=== PATIENT | female | born 1940 | race Caucasian/White ===

== ENCOUNTER → 2018-07-19 | Outpatient (CLI) | payer OTHER ==
--- NOTE | 2018-07-19 17:09 | EXE ---
[place] [address] STRESS ECHOCARDIOGRAM Name: TOVA CURTIS Room: [facility]#: [id number] Admission: 07/19/18 Attend Phys: Noah Luis, Discharge: Date of : 44 Date of Service: 07/19/18 1709 Report #: [id number] THIS REPORT FOR: //name// APPROVED REPORT Study performed: 07/19/2018 15:34:29 Exam: Dobutamine Stress Echo Indication: Chest pain , Dyspnea , Fatigue Patient Location: Out-Patient Stress Nurse: Paige Grande RN Supervising Physician: Hernan Bullard MD Ht: 5 ft 2 in HR: 75 bpm BP: 172/85 mmHg Medical History Cardiac Risk Factors: FHX of CAD, HTN, DM Procedure The patient underwent a Pharmacological Stress Test using Dobutamine. Blood pressure, heart rate, and EKG were monitored. An Echocardiogram was performed by electronics maintenance technician in four stages in quad fashion. At peak stress, four selected images were obtained and placed side by side with resting images for comparison. Stress Test Details Stress Test: Pharmacological Stress Test using Dobutamine. Reason for pharmacologic stress test: physical limitation. HR Resting HR: 75 bpm Max Heart Rate (APMHR): 145 bpm Max HR Achieved: 138 bpm Target HR (85% APMHR): 123 bpm % of APMHR: 95 Recovery HR: 89 bpm HR response to stress: Normal HR response to stress BP Resting BP: 172/85 mmHg Max BP: 214/85 mmHg Recovery BP: 194/93 mmHg BP response to stress: Normal blood pressure response to stress. ECG Resting ECG: [place] [address] STRESS ECHOCARDIOGRAM Name: TOVA CURTIS Room: [facility]#: [id number] Admission: 07/19/18 Attend Phys: Noah Smith, Discharge: Date of : 44 Date of Service: 07/19/18 1709 Report #: [id number] Stress ECG: nsr ST Change: nonspecific ST depression Maximum ST Deviation: 0.5 mm Arrhythmia: none Recovery ECG: nsr Recovery ST Change: none Recovery ST Deviation: none mm Recovery Arrhythmia: none Clinical Reason for Termination: Completed protocol Stress Symptoms: Dyspnea Stress ECG Conclusion normal ecg Pre-Stress Echo The resting Echocardiogram showed normal left ventricular contractility with an estimated Ejection Fraction of about 60-65%. Moderate Aortic Stenosis, mean gradient 25mmhg, post infusion incrased to 37.5mmhg Mild Mitral Regurg Post-Stress Echo LV chamber size decreases, LV ejection fraction increases, no new wall motion abnormalities are seen. Conclusion Clinical Response: Non-ischemic Exercise Capacity: n/a Stress ECG Response: Non-ischemic Stress Echo Images: Non-ischemic Moderate aortic stenosis, no evidence of myocardial ischemia Other Information Study Quality: Good <Conclusion> Moderate aortic stenosis, no evidence of myocardial ischemia <ELECTRONICALLY SIGNED> By: Salinas Martinez MD, FAC 07/19/181708 08 08 Salinas Martinez MD, FACC /INF
== END ==
LOC: M.CRD 13:35
DX: I35.0 Nonrheumatic aortic (valve) stenosis (principal); R07.9 Chest pain, unspecified; R01.1 Cardiac murmur, unspecified; I10 Essential (primary) hypertension; E11.8 Type 2 diabetes mellitus with unspecified complications; Z82.49 Family history of ischemic heart disease and other diseases of the circulatory system

== ENCOUNTER 2018-07-23 10:06 | Observation (INO) | payer OTHER ==
[~2018-07-23] VITALS: Ht 157.5 cm; Wt 84.4 kg
[2018-07-23] VITALS (15 sets, daily range): BP systolic 117–170; BP diastolic 48–69
[2018-07-23 11:08] LABS: HEMATOCRIT 41.6 % (37.0-47.0); MCH 30.2 pg (26.0-34.0); MCHC 33.6 g/dL (28.0-37.0); MCV 89.6 fL (80.0-100.0); MPV 7.8 fl. (7.2-11.1); RBC 4.64 mil/uL (4.20-5.00); RDW-CV 13.6 % (10.5-14.5); WBC 4.9 thou/uL (4.0-11.0)
[2018-07-23 11:17] LABS: APTT 24.5 Seconds (25.0-31.3); INR 0.9; PROTIME 9.5 Seconds (9.20-11.50)
[2018-07-23 11:22] LABS: ALBUMIN 3.8 g/dL (3.4-5.0); ALKALINE PHOSPHATASE 78 U/L (46-116); ANION GAP 8 mmol/L (7-16); BUN 22 mg/dL (7-18); CALCIUM 9.1 mg/dL (8.5-10.1); CHLORIDE 104 mmol/L (98-107); CO2 30 mmol/L (21-32); CREATININE 0.8 mg/dL (0.6-1.3); GLUCOSE 132 mg/dL (70-99); POTASSIUM 3.9 mmol/L (3.5-5.1); SGOT 13 U/L (15-37); SGPT 26 U/L (30-65); SODIUM 142 mmol/L (136-145); TOTAL BILIRUBIN 0.3 mg/dL (<0.1-1.0); TOTAL PROTEIN 7.9 g/dL (6.4-8.2)
--- NOTE | 2018-07-23 14:59 | EKG ---
[place] [address] ELECTROCARDIOGRAM REPORT Name: TOVA CURTIS Room: [facility]#: [id number] Admission: 07/23/18 Attend Phys: Hernan Bullard MD, F Discharge: Date of : 44 Report #: [id number] THIS REPORT FOR: //name// [facility] Test Date: 2018-07-23 Test Time: 11:06:27 Pat Name: TOVA CURTIS Department: Room: Gender: F Documentation Liaison: : 1940 Requested By: Hernan Bullard Order Number: [id number] Martin MD: Hernan Bullard Measurements Intervals [place] Rate: 78 P: 49 WA: 152 QRS: 38 QRSD: 76 T: 60 QT: 356 QTc: 406 Interpretive Statements Sinus rhythm No previous ECG available for comparison Electronically Signed On 07-23-2018 14:59:19 CDT by Hernan Bullard [email or web address] <ELECTRONICALLY SIGNED> By: Hernan Bullard MD, [facility] 07/23/18 1459 1106 1106 Hernan Bullard MD, FACC /EPI
[2018-07-23 16:06] LABS: PCO2 VENOUS 43.8 mmHg (41.0-51.0); PO2 VENOUS 69.9 mmHg (35.0-45.0)
[2018-07-23 16:07] LABS: BE 0 mmol/L (-2 to +3); PCO2 VENOUS 46.5 mmHg (41.0-51.0); PO2 VENOUS 35.4 mmHg (35.0-45.0)
[2018-07-23 16:50] LABS: CHOLESTEROL 272 mg/dL (<200); HDL CHOLESTEROL 51 mg/dL (>40); LDL CHOLESTEROL 190 mg/dL (<100); TC:HDL 5.3 Ratio (Not establshd); TRIGLYCERIDE 156 mg/dL (<150); VLDL 31 mg/dL (<40)
[2018-07-23 16:51] LABS: SERUM ASSESSMENT CL
--- NOTE | 2018-07-23 16:57 | EKG ---
[place] [address] ELECTROCARDIOGRAM REPORT Name: TOVA CURTIS Room: [facility]#: [id number] Admission: 07/23/18 Attend Phys: Hernan Bullard MD, F Discharge: Date of : 44 Report #: [id number] THIS REPORT FOR: //name// [facility] Test Date: 2018-07-23 Test Time: 16:47:27 Pat Name: TOVA CURTIS Department: Room: Gender: Multimedia Services Coordinator: : 1940 Requested By: Hernan Bullard Order Number: [id number] Martin MD: Hernan Bullard Measurements Intervals [place] Rate: 76 P: 33 NV: 157 QRS: 38 QRSD: 81 T: 48 QT: 396 QTc: 446 Interpretive Statements Sinus rhythm Compared to ECG 07/23/2018 11:06:27 No significant changes Electronically Signed On 07-23-2018 16:57:21 CDT by Hernan Bullard [email or web address] <ELECTRONICALLY SIGNED> By: Hernan Bullard MD, [facility] 07/23/18 1657 46 46 Hernan Bullard MD, FACC /EPI
--- NOTE | 2018-07-23 17:27 | CARD ---
[address] [address] CARDIAC CATH REPORT Name: TOVA CURTIS Room: [facility] GIANCARLO Nassar#: [id number] Admission: 07/23/18 Attend Phys: Hernan Bullard MD, F Discharge: Date of : 44 Report #: [id number] THIS REPORT FOR: //name// APPROVED REPORT Study performed: 07/23/2018 14:48:11 Patient Details Patient Status: Out-Patient Room #: The patient is a 77 year-old female Event Personnel Hernan Bullard Electric Motor Repairing Supervisor, Paula Bettencourt RN Chainstitch Binder, Noé Reyna (R) Monitor, Willis Long WATERSHED PROGRAM MANAGER Scrub Procedures Performed Right and Left Heart Cath w/or w/o CoronarieDES Place w/wo Plasty Single LAD PEDRO Place w/wo Plasty Addl BR OM 2 Indication Chest pain, Murmur Risk Factors Hypercholesterolemia, Hypertension, Diabetes Admission/Lab Medications/Medications given during procedure Glycoprotein IllbIlla Inhibitors, Heparin Unfract. Procedure Narrative The patient was brought electively to the Cardiac Catheterization Laboratory and was prepped and draped in a sterile manner. The right femoral was infiltrated with 1% Lidocaine subcutaneous anesthesia. A Right Heart Catheterization was performed with a 6 Fr. [place]-Caryn catheter and pressure were recorded. Cardiac outputs were obtained by the Thermal Dilution method. A 7Fr X 11cm Sheath sheath was inserted into the right femoral artery. Coronary angiography was performed using coronary diagnostic catheters. The right coronary system was accessed and visualized with a Diagnostic JR 4 catheter. The left coronary system was accessed and visualized with a Diagnostic JL 4 catheter. The left ventricle was accessed and visualized with a Diagnostic Angled Pigtail catheter. Left ventricular/Aortic Valve gradient assessed via catheter pullback. Left ventriculogram was performed in AGUILA and BOTSWANAN projection. [place] [address] CARDIAC CATH REPORT Name: TOVA CURTIS [id number] Admission: 07/23/18 Attend Phys: Hernan Bullard MD, F Discharge: Date of : 44 Report #: [id number] a 5 Fr Angioseal STS 6Fr. The patient tolerated the procedure well and there were no complications associated with the procedure. There was no hematoma. Right heart pressures and O2 saturations were performed with a swan caryn catheter. 7 tunisian sheath removed from the right femoral vein and a mynx was placed Intraoperative Conscious Sedation Sedation start time: 15:11 Case end Time: 16:07 Fentanyl 50 mcg Versed 2 mg Fluoro Time: 7.8 minutes Dose: DAP 98001 cGycm2 1530 mGy Contrast Type and Amount: Visipaque 250 ml Coronary Angiography The patient's coronary anatomy is co- dominant. Diagnostic Cath Left Main 0% stenosis LAD 90% proximal, 50% mid, and 60% distal stenosis noted OM2 80% mid stenosis Right Coronary 70% proximal and 80% distal stenosis Left Ventriculography The left ventricle is normal in size with normal contractility. The left ventricular ejection fraction is estimated to be 60-65%. Left ventricular wall motion abnormalities are not present. There is no mitral insufficiency. Hemodynamics The right atrial mean pressure is 6 mmHg. The right ventricular pressure is 42/4 mmHg. The pulmonary artery pressure is 38/13 mmHg with a mean of 19 mmHg. The mean pulmonary capillary wedge pressure is 10 mmHg. The aortic pressure is 154/61 mmHg with a mean of 98 mmHg. The left ventricular pressure is 176/8 mmHg with a mean of mmHg. The left ventricular end diastolic pressure is 15 mmHg. Pullback from the left ventricle to the aorta revealed a 20 mm gradient across the aortic valve. Arterial saturation is 93 %. The cardiac output and index were assessed using thermodilution. The cardiac output using thermo method is 4.37 L/min. The cardiac index using thermo method is 2.39 L/min/m2. The peak gradient across the aortic valve is 20 mmHg. PCI Technique Lesion Anticoagulation was achieved with Heparin[place] [address] CARDIAC CATH REPORT Name: TOVA CURTIS JOSEPH Room: [facility]#: [id number] Admission: 07/23/18 Attend Phys: Hernan Bullard MD, F Discharge: Date of : 44 Report #: [id number] Percutaneous coronary intervention was performed on the second obtuse marginal branch segment. The lesion stenosis prior to intervention was 80% with SHANNEN 3 flow. A 6FR XB 3.5 100CM Guide Catheter was used to engage the lm ostium. A IG: BMW 190cm Interventional Guidewire was used to cross the lesion. BALLOON DILATION A Balloon catheter Trek RX 2.5 X 8 was inserted and inflated up to 8.00atm for 13seconds. Repeat angiography revealed the following post-dilatation results: 50% stenosis. STENT DEPLOYMENT A drug-eluting stent [place] RX Stent 2.5X12mm was inserted and inflated up to 10.00atm for 13seconds. Repeat angiography revealed the following post-stent deployment results: 0% stenosis. Additional Inflation: 10.00atm for 15seconds. Final angiography reveals 0 % stenosis with SHANNEN 3 flow. PCI Technique Lesion 2 Percutaneous Coronary Intervention was performed on the proximal left anterior descending artery segment. Percutaneous coronary intervention was performed on the proximal left anterior descending artery segment. The lesion stenosis prior to intervention was 90% with SHANNEN 3 flow. A 6FR XB 3.5 100CM Guide Catheter was used to engage the lm ostium. A IG: BMW 190cm Interventional Guidewire was used to cross the lesion. Balloon Dilation A Balloon catheter Trek RX 2.5 X 8 was inserted and inflated up to 10.00atm for 13seconds. Repeat angiography revealed the following post-dilatation results: 40% stenosis. Stent Deployment A drug-eluting stent [place]field RX Stent 2.5X18mm was inserted and inflated up to 10.00atm for 12seconds. Repeat angiography revealed the following post-stent deployment results: 0% stenosis. Additional Inflation: 13.00atm for 14seconds. Final angiography reveals 0 % stenosis with SHANNEN 3 flow. Conclusion 1. cad manifested by 90% proximal stenosis of the lad, and 60% distal stenosis 2. 80% stenosis of second marginal branch of the circumflex [address] [address] CARDIAC CATH REPORT Name: TOVA CURTIS [id number] Admission: 07/23/18 Attend Phys: Hernan Bullard MD, F Discharge: Date of : 44 Report #: [id number] 3. 70% proximal stenosis of the rca 4. LVEF 60-65% 5. successful placement of drug eluting stents in the lad and circumflex 6. mild Recommendations Cardiac Rehabilitation Referral Aggressive Medical Therapy Medications Administered Clopidogrel <ELECTRONICALLY SIGNED> By: Hernan Bullard MD, FAC 07/23/18 1727 172 26Hernan Bullard MD, FACC /INF
[2018-07-23] MEDS ORDERED: METFORMIN HCL500 MG PO (17:55)
[2018-07-23] MEDS ORDERED: SPIRONOLACTONE25 M1 PO (17:57)
[2018-07-23] MEDS ORDERED: HUMALOG100 UNIT/1 SUBQ (17:58)
[2018-07-23] MEDS ORDERED: PROTONIX40 M1 PO (17:58)
[2018-07-23] MEDS ORDERED: INDAPAMIDE2.5 MG PO (17:59)
[2018-07-23] MEDS ORDERED: SYNTHROID88 MCG PO (18:00)
[2018-07-23] MEDS ORDERED: VITAMIN D1000 UNI1 PO (18:01)
[2018-07-23] MEDS ORDERED: FOLIC ACID0.4 MG PO (18:01)
[2018-07-23] MEDS ORDERED: CENTRUM SILVER1 EAC4 PO (18:02)
--- NOTE | 2018-07-23 18:07 | NUR ---
PT ADMITTED TO ROOM 203 VIA CART FROM LOCOMOTIVE FIRER/FIREMAN. REPORT RECEIVED FROM MARY RIOS. PT IS POST CATH-RIGHT GROIN- DRESSING IN PLACE-NOTED TO HAVE DRIED BLOOD. WILL MONITOR CLOSELY. ADMISSION ASSESSMENT AND HISTORY COMPLETED. SEPSIS SCREENING COMPLETED- PT SCREENED NEGATIVE. REFER TO CHARTING. PT ORIENTED TO ROOM AND CALL LIGHT. FAMILY AT BEDSIDE. PT INSTRUCTED ON BEDREST UNTIL 2220. PT COMMUNICATES UNDERSTANDING. PT A&0X4, DENIES ANY PAIN OR SHORTNESS OF BREATH AT THIS TIME. PT TRACING SR ON THE BUSINESS ANALYST SALES OPERATIONS. ON RA SAT UPPER 90'S. HOME MEDICATIONS RECONCILED. POST CARDIAC CATH ASSESSMENT AND VITALS CHARTED. MEDICATIONS PER MAY. PT REPOSITIONS SELF. HOURLY ROUNDING OBSERVED. BED IN LOW POSITION. CALL LIGHT WITHIN REACH, WILL CONTINUE PLAN OF CARE.
[2018-07-24] VITALS: BP 152/68
[2018-07-24 04:00] VITALS: BP 142/62
--- NOTE | 2018-07-24 05:23 | NUR ---
PT RESTING COMFORTABLE IN BED. PT SR ON MONITOR. NO C/O PAIN. UPON SHIFT CHANGE BEGINNING OF MY SHIFT. DAY RN SHOWED ME PT RIGHT GROIN POST CATH AND SAID THE PT WAS BROUGHT UP WITH THE SITE OOZING BUT RN OUTLINED. I VERIFIED FOR ACCURACY BY PLACING TISSUE IN RIGHT GROIN AND IT SITE WAS OOZING SO I HELD PRESSURE FOR ABOUT 8 MIN. REDRESSED WITH NEW GAUZE AND TRANSPARENT DSG. CALL WAS PLACED TO DR. CORDOVA WHO WAS ON SITE CONSTRUCTION SUPERINTENDENT FOR DR HENLEY AND NOTIFIED HIM OF PT STATUS. HE SAID OKAY AND TO MONITOR. AROUND MIDNIGHT, RECHECKED SITE AND SMALL AMOUNT OF DRAINAGE ON NEW DSG, OUTLINED THAT AND MONITORED WITH NO CHANGE SO FAR.
[2018-07-24 05:25] LABS: HEMATOCRIT 36.1 % (37.0-47.0); HEMOGLOBIN 12.3 gm/dL (12.0-15.0); MCH 30.3 pg (26.0-34.0); MCV 88.9 fL (80.0-100.0); MPV 7.9 fl. (7.2-11.1); RBC 4.06 mil/uL (4.20-5.00); RDW-CV 13.9 % (10.5-14.5); WBC 5.6 thou/uL (4.0-11.0)
[2018-07-24 05:26] LABS: CALCIUM 8.7 mg/dL (8.5-10.1); CREATININE 0.7 mg/dL (0.6-1.3); POTASSIUM 3.9 mmol/L (3.5-5.1)
[2018-07-24 06:20] LABS: TROPONIN-I LEVEL 1.56 ng/mL (<0.06)
[2018-07-24 08:59] VITALS: BP 142/62
[2018-07-24 09:00] VITALS: BP 184/62
--- NOTE | 2018-07-24 10:29 | NUR ---
ASSUMED PT CARE AT 0700 PT IS ALERT AND ORIENTED X 4 PT DENIES PAIN OR SOA ON RA, PT IS UP AD CHRIS PT IS NOT A FALL RISK, PT RIGHT GROIN SITE IS CLEAN DRY INTACT SOFT SLIGHT BRUSING, PT IS SR ON THE MONITOR, WILL CONTINUE TO MONITOR
[2018-07-24 12:12] VITALS: BP 173/58
[2018-07-24] MEDS ORDERED: PLAVIX 75 MG TA75 MG PO (12:15)
[2018-07-24] MEDS ORDERED: NITROGLYCERIN0.4 MG SUBLING (12:24)
[2018-07-24] MEDS ORDERED: TYLENOL325 MG PO (12:24)
[2018-07-24] MEDS ORDERED: ZETIA10 MG PO (12:25)
[2018-07-24 12:26] VITALS: BP 142/62
--- NOTE | 2018-07-24 13:11 | SHORT ---
[address] [address] SHORT STAY SUMMARY Name: TOVA CURTIS Room: [address] Prabhu Nassar#: [id number] Admission: 07/23/18 Attend Phys: Hernan Bullard MD, F Discharge: Date of : 44 Report #: [id number] THIS REPORT FOR: //name// CC: Hernan Smith DATE OF SERVICE: 07/24/2018 DISCHARGE DIAGNOSES: 1. Crescendo angina. 2. Coronary artery disease. 3. Hypertension. 4. Mild aortic stenosis. 5. Diabetes. 6. Hyperlipidemia. 7. Carotid bruit. PROCEDURES: Right and left heart catheterization with placement of drug-eluting stents in the LAD and circumflex artery via the femoral approach. HISTORY OF PRESENT ILLNESS: The patient is a 77-year-old single white female who was brought to the outpatient department to perform cardiac catheterization. The patient has a history of a heart murmur. Recently, she noticed with exertion, she develops tightness in her chest and has to stop walking. The pain is not related to food. She does note exertional dyspnea, but has had no syncope. She recently underwent a stress dobutamine echo at [place] that did reproduce the chest discomfort. There were no ECG changes and moderate aortic stenosis was noted. Because of her symptoms of crescendo angina and strong family history, I recommended she undergo cardiac catheterization. PAST MEDICAL HISTORY: Significant for no major surgical procedures. She has a history of hypertension, diabetes, and hyperlipidemia. MEDICATIONS: Consists of gemfibrozil. She cannot tolerate statin drugs in the past. She is on Lozol, insulin, Synthroid, Glucophage, Protonix, red yeast rice tablets, and spironolactone. ALLERGIES: SHE IS INTOLERANCE TO JAYA INHIBITORS, CODEINE, LOSARTAN, STATIN DRUGS. PHYSICAL EXAMINATION: VITAL SIGNS: Blood pressure 140/80, pulse 80. CHEST: Clear to auscultation, bilateral carotid bruits were heard. CARDIAC: Regular rate and grade 4 lay PSI ejection murmur along [place] [address] SHORT STAY SUMMARY Name: TOVA CURTIS Room: [address]#: [id number] Admission: 07/23/18 Attend Phys: Hernan Bullard MD, F Discharge: Date of : 44 Report #: [id number] ABDOMEN: Soft. EXTREMITIES: Had no edema. SKIN: Warm and dry. LABORATORY DATA: ECG showed a sinus rhythm. LABORATORY DATA: Her workup: Sodium 142, creatinine 0.7, glucose 160. Liver function studies were normal. Cholesterol is 272, triglyceride 156, HDL 51, and LDL 190. TSH is 1.9. White blood cell count 5.6 and hemoglobin 12.3. HOSPITAL COURSE: The patient was brought to the outpatient department. I performed a right and left heart catheterization from the right femoral artery and vein. Results showed normal left ventricular function with an ejection fraction of 60-65%. There was a 20 mm gradient noted across the aortic valve with aortic valve area of 1.0 consistent with moderate aortic stenosis. She was found to have diffuse coronary artery disease of 90% narrowing of the proximal LAD, 60% narrowing of the distal LAD. There was an 80% stenosis of the second marginal branch of circumflex. The right coronary artery had a 70% mid stenosis and 80% narrowing of the distal right coronary artery. The results were discussed with the patient. She is felt to have only moderate aortic stenosis. However, she had severe coronary artery disease. I recommended stenting. I did not recommend stenting of the right coronary artery since it was a small vessel and tortuous. I did place a drug-eluting stent in the proximal LAD and the second marginal branch. She tolerated this well. She was given heparin and Aggrastat. She was loaded with Plavix. The sheath was removed from the right femoral artery and an Angio-Seal placed. The sheath was removed from the right femoral vein after the right heart catheterization and Mynx closure device was placed. The patient had no significant hematoma the next day. She denied any further chest pain, shortness of breath or arrhythmias. She was discharged on her home medications that consisted of Lopid 600 mg twice day for hypertriglyceridemia. The patient cannot tolerate statin drugs. I suggested continue her red yeast rice and to take Zetia 10 mg a day. She was to continue Lozol for hypertension. She is on insulin therapy for diabetes, Synthroid 88 mcg a day. She is not to resume her metformin for 48 hours after the contrast study. She is on Protonix 40 mg a day, Aldactone 25 mg a day. In addition, she was started on aspirin 81 mg a day and Plavix 75 mg a day for at least one year following stenting. She is given a prescription for nitroglycerin. The patient has had previous vascular screening showing no significant carotid stenosis. I would recommend a repeat carotid Doppler, since she has bilateral carotid bruits. The patient was discharged to return to nurse Smith for management of her diabetes. I plan on seeing her in Cardiology Clinic in 1 month for followup of coronary artery stenting. She was to contact my office if she had recurrent chest pain or bleeding. If she continues to have angina, I would consider [address] [address] SHORT STAY SUMMARY Name: TOVA CURTIS JOSEPH Room: [address] Maday#: [id number] Admission: 07/23/18 Attend Phys: Hernan Bullard MD, F Discharge: Date of : 44 Report #: [id number] stenting of the right coronary artery. At the time of discharge, the patient had a blood pressure of 140/60, pulse is 80, and she is afebrile. <ELECTRONICALLY SIGNED> By: Hernan Bullard MD, FACC 07/24/18 1311 1113 1152Dtimothy Bullard MD, FACC /nt
--- NOTE | 2018-07-24 13:45 | EKG ---
[place] [address] ELECTROCARDIOGRAM REPORT Name: TOVA CURTIS Room: [address] M.R.#: [id number] Admission: 07/23/18 Attend Phys: Hernan Bullard MD, F Discharge: 07/24/18 Date of : 44 Report #: [id number] THIS REPORT FOR: //name// [facility] Test Date: 2018-07-24 Test Time: 08:00:56 Pat Name: TOVA CURTIS Department: Room: [facility] Gender: F Geospatial Applications Developer: : 1940 Requested By: Hernan Bullard Order Number: [id number] Martin MD: Hernan Bullard Measurements Intervals [place] Rate: 81 P: 47 CT: 161 QRS: 49 QRSD: 77 T: 54 QT: 380 QTc: 441 Interpretive Statements Sinus rhythm Compared to ECG 07/23/2018 16:47:27 No significant changes Electronically Signed On 07-24-2018 13:45:33 CDT by Hernan Bullard [email or web address] <ELECTRONICALLY SIGNED> By: Hernan Bullard MD, [facility] 07/24/18 1345 0800 08 Hernan Bullard MD, [facility] /EPI
== END 2018-07-24 12:30 | disposition home or self-care (01) ==
LOC: M.CL 10:06 → M.2W 16:30 → M.TBA-CV 16:30 → M.2W 17:51
PROVIDERS: ADMIT Internal Medicine Cardiovascular Disease
DX: I25.119 Atherosclerotic heart disease of native coronary artery with unspecified angina pectoris (principal); E11.9 Type 2 diabetes mellitus without complications; E78.00 Pure hypercholesterolemia, unspecified; I10 Essential (primary) hypertension; I35.0 Nonrheumatic aortic (valve) stenosis; E78.5 Hyperlipidemia, unspecified; R09.89 Other specified symptoms and signs involving the circulatory and respiratory systems; Z95.5 Presence of coronary angioplasty implant and graft; Z88.5 Allergy status to narcotic agent; Z88.8 Allergy status to other drugs, medicaments and biological substances

== ENCOUNTER → 2019-09-15 | Outpatient (CLI) | payer OTHER ==
[~2019-09-15] MED LIST: CENTRUM SILVER1 EAC4 PO; FOLIC ACID0.4 MG PO; HUMALOG100 UNIT/1 SUBQ; INDAPAMIDE2.5 MG PO; METFORMIN HCL500 MG PO; NITROGLYCERIN0.4 MG SUBLING; PLAVIX 75 MG TA75 MG PO; PROTONIX40 M1 PO; SPIRONOLACTONE25 M1 PO; SYNTHROID88 MCG PO; TYLENOL325 MG PO; VITAMIN D1000 UNI1 PO; ZETIA10 MG PO
--- NOTE | 2019-09-15 18:08 | CARDNUC ---
[place] [address] CARDIAC NUCLEAR IMAGING REPORT Name: KIRSTEN,MELMILES Mendes Room: [facility]#: [id number] Admission: 09/15/19 Attend Phys: Hernan Bullard MD Discharge: Date of : 44 Date of Service: 09/15/19 1807 Report #: [id number] THIS REPORT FOR: cc: La Sánchez Tammy RNP Liston, Michael J. MD [facility] ~ APPROVED REPORT Study performed: 09/15/2019 09:19:06 Exam: Nuclear Stress Test Indication: Chest pain Patient Location: Out-Patient Stress Tech: Taylor Trevino Stress Nurse: Lexi Caldwell RN Ht: 5 ft 2 in Wt: 187 lbs BSA: 1.86 m2 BMI: 34.19 Medical History Medical History: CAD s/p stent, Carotid artery disease, Diabetes, HTN, Hyperlipidemia, Valvular heart disease Medications: asa-81, metoprolol, indapamide, ntg, spironolactone, clonidine Allergies: gabapentin, losartan, pneumovax, michael inhibitors, codeine, sertraline, simvastatin Cardiac Risk Factors: Age, HTN, Hyperlipidemia, DM Previous Cardiac Procedures: PCI Exercise History: Indeterminate Stress Test Details Stress Test: Pharmacologic stress testing performed using 0.4 mg of regadenoson per 5 mL given IV over 10 seconds. HR Resting HR: 93 bpm Max Heart Rate (APMHR): 143 bpm Max HR Achieved: 135 bpm Target HR (85% APMHR): 121 bpm % of APMHR: 94 Recovery HR: 103 bpm BP Resting BP: 153/83 mmHg Max BP: 217/98 [place] [address] CARDIAC NUCLEAR IMAGING REPORT Name: TOVA CURTIS Vaughn Room: [facility]#: [id number] Admission: 09/15/19 Attend Phys: Hernan Bullard MD Discharge: Date of : 44 Date of Service: 09/15/19 1807 Report #: [id number] ECG Resting ECG: Sinus Rhythm Stress ECG: Sinus Rhythm ST Change: Downsloping ST depression Maximum ST Deviation: 1 mm Arrhythmia: None Recovery ECG: Sinus Rhythm Recovery ST Change: Downsloping ST depression Recovery ST Deviation: 1 mm Recovery Arrhythmia: None Clinical Reason for Termination: Completed protocol The patient had no significant cardiac symptoms with the walking Lexiscan protocol. Nurse Comments pt too unsteady on feet to walk on treadmill Stress ECG Conclusion The baseline twelve-lead EKG shows sinus rhythm with no significant ST segment or T wave abnormality. EKGs obtained during a post walking Lexiscan protocol show [address] segment depression in the inferior leads that persisted into recovery. There were no stress-induced arrhythmias. NM EXAM: Myocardial Perfusion REST/STRESS Imaging Protocol: Rest Tc-99m/Stress Tc-99m 1 day Resting Data Rest SPECT myocardial perfusion imaging was performed in supine position 30 minutes following the intravenous injection of 11.7 mCi of Tc-99m Sestamibi. Time of rest injection: 07:35 The images were gated to evaluate regional wall motion and calculate left ventricular ejection fraction. Administration Route: IV Administration Site: Right Arm Pharmacologic Stress Pharmacologic stress test was performed by injecting Regadenoson 0.4 mg IV push followed by the intravenous injection of 33.5 mCi of Tc-99m Sestamibi. Time of stress injection: 09:40 Administration Route: IV Administration Site: [place] [address] CARDIAC NUCLEAR IMAGING REPORT Name: TOVA CURTIS Room: [facility]#: [id number] Admission: 09/15/19 Attend Phys: Hernan Bullard MD Discharge: Date of : 44 Date of Service: 09/15/19 1807 Report #: [id number] Heart Rate at time of stress injection: 135 bpm. Gated Stress SPECT was performed 40 minutes after stress injection. The images were gated to evaluate regional wall motion and calculate left ventricular ejection fraction. Prone imaging was performed. Study Quality Study: Good Artifact: No artifact Study Data At rest, the left ventricular ejection fraction was 77%.. Post stress, the left ventricular ejection was 74%.. TID = 1.01. Perfusion Perfusion images obtained at rest and post walking Lexiscan protocol show uniform uptake of the radioisotope throughout the myocardium without defect. Wall Motion Global LV systolic function is normal with no evidence of wall motion abnormality. Nuclear Conclusion ECG Findings: positive for ischemia Clinical Findings: negative for ischemia Nuclear Findings: negative for ischemia Exercise Capacity: not assessed Left Ventricular Function: normal Risk Study: low EKG findings are likely a false positive in light of myocardial perfusion imaging findings. There were no defects to suggest infarct or ischemia. Global LV systolic function is normal. This is a low risk study. <Conclusion> The baseline twelve-lead EKG shows sinus rhythm with no significant ST segment or T wave abnormality. EKGs obtained during a post walking Lexiscan protocol show [address] [place] [address] CARDIAC NUCLEAR IMAGING REPORT Name: ZION CURTISPriscila Mendes Room: [facility]#: [id number] Admission: 09/15/19 Attend Phys: Hernan Bullard MD Discharge: Date of : 44 Date of Service: 09/15/19 1577 Report #: [id number] in the inferior leads that persisted into recovery. There were no stress-induced arrhythmias. <ELECTRONICALLY SIGNED> By: Smith Sepulveda MD, [facility] 09/15/19 1747 06 06 Smith Sepulveda MD, FACC /INF
== END ==
LOC: M.NUC 08-30 11:21
PROVIDERS: ATTEND Internal Medicine Cardiovascular Disease
DX: I20.0 Unstable angina (principal); R07.9 Chest pain, unspecified